=== PATIENT | male | born 1985 ===

== ENCOUNTER 2022-05-13 16:50 | Outpatient (CLI) | payer BC ==
--- NOTE | 2022-05-14 09:12 | XRAY Report ---
PROCEDURE: Knee 3 View LT INDICATIONS: SPRAIN OF L KNEE TECHNIQUE: 3 views of the left knee(s) were acquired. COMPARISON: None. FINDINGS: Bones: No fractures or dislocations. No suspicious bony lesions. Soft tissues: Mild joint effusion. No suspicious soft tissue calcifications. IMPRESSION: Mild effusion. No visualized acute fracture or dislocation. However, occult injury canno t be excluded. Recommend short interval imaging follow-up in 7-10 days as clinically indicated for ad ditional evaluation. Reviewed by: Qing Rosenbaum MD on 05/14/2022 9:11 AM PDT Approved by: Qing Rosenbaum MD on 05/14/2022 9:11 AM PDT Station ID: [id number]
== END 2022-05-13 23:59 | disposition home or self-care (01) ==
LOC: DI.N 16:50
PROVIDERS: ATTEND Physician Assistant
DX: S83.92XA Sprain of unspecified site of left knee, initial encounter (principal); M25.462 Effusion, left knee